=== PATIENT | female | born 1965 | race Caucasian/White ===

== ENCOUNTER 2019-05-27 07:55 | Outpatient (CLI) | payer MEDICAID, SELFPAY ==
--- NOTE | 2019-05-27 08:41 | US_ITS ---
WS: [id number] Pelvic ultrasound, 05/27/2019 Clinical Data: POST MENOPAUSAL BLEEDING Comparison: None. Findings: The uterus measures 3.82 cm x 8.77 cm x 9.03 cm. The endometrium is 0.58 cm. There is a small fibroid within the myometrium measuring 1.07 cm. The cer vix shows nabothian cysts. The ovaries were not imaged.There is minimal fluid in the cul-de-sac. US/US pelvic with transvaginal Impression: 1. Small fibroid in the uterus. 2. Ovaries not imaged. 3. Small amount of fluid in the cul-de-sac.
== END 2019-05-27 07:56 | disposition home or self-care (01) ==
PROVIDERS: Family Provider Nurse Practitioner Family; PCP Clinical Nurse Specialist Adult Health; Visit Provider Clinical Nurse Specialist Adult Health
DX: N95.0 Postmenopausal bleeding (principal); D25.9 Leiomyoma of uterus, unspecified
CPT/HCPCS: 76830; 76856

== ENCOUNTER → 2019-08-31 09:55 | Outpatient (BNVA) | payer MEDICAID, SELFPAY | PROVIDERS: Family Provider Nurse Practitioner Family; PCP Clinical Nurse Specialist Adult Health; Visit Provider Obstetrics & Gynecology Female Pelvic Medicine and Reconstructive Surgery | DX: Z12.39 Encounter for other screening for malignant neoplasm of breast (principal); N95.0 Postmenopausal bleeding; F41.9 Anxiety disorder, unspecified; J44.9 Chronic obstructive pulmonary disease, unspecified; E66.9 Obesity, unspecified; Z72.0 Tobacco use; N39.46 Mixed incontinence; N36.8 Other specified disorders of urethra | CPT/HCPCS: 88175 ==

== ENCOUNTER → 2019-09-02 07:29 | Outpatient (BNVA) | payer MEDICAID, SELFPAY | PROVIDERS: Family Provider Nurse Practitioner Family; PCP Clinical Nurse Specialist Adult Health; Visit Provider Obstetrics & Gynecology Female Pelvic Medicine and Reconstructive Surgery | DX: N95.0 Postmenopausal bleeding (principal) | CPT/HCPCS: 88305 ==

== ENCOUNTER 2020-02-19 08:56 | Emergency (ER) | payer MEDICAID, SELFPAY ==
[2020-02-19 09:02] VITALS: BP 166/91; PULSE 67; RESP 18; TEMP 36.4; O2SAT 98; BMI 37.9
--- NOTE | 2020-02-19 09:02 | XRR_ITS ---
PROCEDURE INFORMATION: Exam: XR Right Hand Exam date and time: 02/19/2020 9:03 AM Age: 54 years old Clinical indication: Pain; Hand; Right; Additional info: Pain, no trauma TECHNIQUE: Imaging protocol: XR Right hand. Views: 3 or more views. COMPARISON: No relevant prior studies available. FINDINGS: Bones/joints: Degenerative change. No marginal erosions. No acute bony injury or malalignment. Soft tissues: Soft tissue calcifications about the ulnar aspect of the 4th DIP joint and volar aspect of the carpus. XR/XR hand RT min 3V* [id number] IMPRESSION: 1. Degenerative change. 2. Soft tissue calcifications about the ulnar aspect of the 4th DIP joint and volar aspect of the carpus.
--- NOTE | 2020-02-19 09:03 | ED_ITS ---
HPI - Extremity Injury (Upper) General: Chief Complaint: Extremity Problem,Nontraumatic Stated Complaint: R HAND SWELLING/PAIN Time Seen by Provider: 02/19/20 09:00 Source: patient Mode of arrival: ambulatory Limitations: no limitations History of Present Illness: HPI narrative: 54-year-old female states she been having right hand pain over the last 2 days. States pain is a aching pain in the lateral portion of her hand. She denies any known injuries. She had no fever. States it is worse with movement or palpation. States improved with rest. Denies any wrist or elbow pain. Review of Systems Const: Denies: fever(s), chills, body aches or change in appetite Eyes: Denies: blurry vision or eye discomfort ENMT: Denies: throat pain or dental pain Card: Denies: chest pain Resp: Denies: dyspnea GI: Denies: abdominal pain, nausea, vomiting or diarrhea : Denies: dysuria Musc: Reports: extremity pain Skin/Breast: Denies: rash Neuro: Denies: headache(s) Psych: Denies: depression Lucien/Lymph: Denies: easy bruising All/Imm: Denies: urticaria PFSH ED PFSH: Medical History Anxiety COPD (chronic obstructive pulmonary disease) Low pressure urethral dysfunction Obesity (BMI 30-39.9) Surgical History delivery delivered x2 - 1986 and 1990 Tubal ligation status 1993 Family History Daughter Bleeding disorder Anemia Psychiatric illness Brother CAD (coronary artery disease) Mother Hyperlipidemia Hypertension Lung disease Stroke Son No problems noted. Sister Hypertension Denies family history of Diabetes Clotting disorder Dementia Chronic kidney disease (CKD) Suicide Anesthesia complication Family history of premature coronary artery disease Cancer Social History Smoking and tobacco status: current every day smoker cigarettes Packs smoked per day: 0.5 Alcohol intake: current Alcohol intake frequency: holidays/special occasions only Physical Exam Const: COMMON NORMALS: no acute distress, patient oriented x3 and healthy appearing HENMT: COMMON NORMALS: normocephalic and atraumatic HEAD & SCALP: normocephalic and atraumatic Eye: COMMON NORMALS: Equal, round and reactive pupils present and EOMs intact bilaterally PUPIL: Yes Equal, round and reactive pupils present Neck/C-Spine: COMMON NORMALS: full ROM and supple Chest: COMMONS NORMALS: normal inspection of the chest and normal palpation of entire chest wall Resp: COMMON NORMALS: normal respiratory effort, No retractions, No use of accessory muscles and clear to auscultation bilaterally AUSCULTATION: clear to auscultation bilaterally Cardio: COMMON NORMALS: regular rate, regular rhythm and No murmurs present (Cardio) RATE: regular rate RHYTHM: regular rhythm GI: COMMON NORMALS: Normal to inspection, nondistended, normoactive bowel sounds present, Soft to palpation, non-tender and no masses PALPATION: Yes Soft to palpation Extremity: COMMON NORMALS: normal to inspection and full ROM NARRATIVE EXTREMITY EXAM: And is sober ulnar aspect of the hand with no warmth to touch or swelling. Neuro: COMMON NORMALS: patient oriented x3, moves all extremities and no focal motor deficits Psych: COMMON NORMALS: mental status grossly normal, Normal thought process present and cooperative THOUGHT PROCESS: Normal thought process present Skin: COMMON NORMALS: no rashes or lesions noted and no wounds GENERAL SKIN EXAM: no rashes or lesions noted Course Vital Signs: Vital signs: Vital Signs Temperature 97.6 F 02/19/20 09:02 Pulse Rate 67 02/19/20 09:02 Respiratory Rate 18 02/19/20 09:02 Blood Pressure 166/91 02/19/20 09:02 Pulse Oximetry 98 02/19/20 09:02 MDM - Extremity Injury (Upper) MDM Narrative: Medical decision making narrative: Patient presents with hand pain that is likely a sprain. She has no signs of fracture or infection. Her exam here is benign. She is to ice it we will place her on anti-inflammatories. She is to follow-up with her PCP in 3 to 5 days and return if worsening. Imaging Data^: xr r hand: Attestation: I personally reviewed and interpreted this imaging study as follows: My impression: No acute abnormality Discharge Plan Discharge Patient Disposition: Home Clinical Impression: Hand pain, right Condition: Stable Prescriptions: New Naprosyn 500 mg tablet 500 mg PO BID PRN (Reason: pain) Qty: 20 RF: 0 No Action varenicline 0.5 mg (11)- 1 mg (42) tablets,dose pack See Rx Instructions PO PER PKG DIR Qty: 53 RF: 0 citalopram 40 mg tablet 40 mg PO DAILY RF: 0 albuterol sulfate [ProAir HFA] 90 mcg/actuation HFA aerosol inhaler 2 puff INHALATION Q6H PRNRF: 0 fluticasone propion-salmeterol [Advair Diskus] 250-50 mcg/dose blister with device 1 inh INHALATION BID RF: 0 solifenacin [Vesicare] 10 mg tablet 10 mg PO DAILY Qty: 30 RF: 3 Discharge Orders: Discharge Order (Routine); Ordered 02/19/20 Ordered By: Candie Luciano Referrals: Edith Krause APRN [Primary Care Provider] - Discharge Diet: Advance as tolerated Discharge Activity: Resume usual activity Patient Instructions: Arthralgia (ED) Coding Level of Care Code 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
[2020-02-19] MEDS: naproxen 500 mg Tablet PO (09:31)
[2020-02-19 09:35] VITALS: BP 154/81; PULSE 60; RESP 18; O2SAT 96
== END 2020-02-19 09:33 | disposition home or self-care (01) ==
PROVIDERS: Emergency Provider Emergency Medicine; PCP Clinical Nurse Specialist Adult Health
DX: M79.641 Pain in right hand (principal); J44.9 Chronic obstructive pulmonary disease, unspecified; F17.210 Nicotine dependence, cigarettes, uncomplicated
CPT/HCPCS: 12345; 73130; 99281; 99283

== ENCOUNTER 2021-03-20 09:51 | Outpatient (CLI) | payer MEDICARE, MEDICAID, SELFPAY | END 2021-03-20 09:52 | disposition home or self-care (01) | LOC: SLEEP 09:52 | PROVIDERS: PCP Clinical Nurse Specialist Adult Health; Visit Provider Nurse Practitioner | DX: G47.10 Hypersomnia, unspecified (principal); R06.83 Snoring; R53.83 Other fatigue; G47.33 Obstructive sleep apnea (adult) (pediatric) | CPT/HCPCS: 95810 ==

== ENCOUNTER 2021-04-30 20:00 | Outpatient (CLI) | payer MEDICARE, MEDICAID, SELFPAY | END 2021-04-30 20:01 | disposition home or self-care (01) | LOC: SLEEP 05-01 07:43 | PROVIDERS: PCP Clinical Nurse Specialist Adult Health; Visit Provider Nurse Practitioner | DX: G47.33 Obstructive sleep apnea (adult) (pediatric) (principal) | CPT/HCPCS: 95811 ==

== ENCOUNTER → 2021-05-28 11:04 | Outpatient (BNVA) | payer MEDICARE, MEDICAID, SELFPAY | PROVIDERS: PCP Clinical Nurse Specialist Adult Health; Visit Provider Nurse Practitioner Family | DX: Z20.822 Contact with and (suspected) exposure to COVID-19 (principal) | CPT/HCPCS: 87635 ==

== ENCOUNTER 2024-09-13 20:07 | Emergency (ER) | payer MEDICARE, MEDICAID, SELFPAY ==
[2024-09-13 20:22] VITALS: BP 136/69; PULSE 77; RESP 18; TEMP 36.4; O2SAT 97; BMI 43.5
--- NOTE | 2024-09-13 20:34 | XRR_ITS ---
PROCEDURE INFORMATION: Exam: XR Left Wrist Exam date and time: 09/13/2024 8:39 PM Age: 59 years old Clinical indication: Pain; Wrist; Left; Additional info: Pain, fall in sept of last year TECHNIQUE: Imaging protocol: Radiologic exam of the left wrist. Views: 3 or more views. COMPARISON: No relevant prior studies available. FINDINGS: Bones/joints: There is normal bony alignment. No acute fracture is detected. There is mild narrowing of the 1st carpometacarpal joint and triscaphe joint with subchondral sclerosis and small marginal spurs. Soft tissues: There is soft tissue edema surrounding the wrist. XR/XR wrist LT min 3V* [id number] IMPRESSION: 1. 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 2. Soft tissue edema. 3. No acute fracture detected.
[2024-09-13 21:00] VITALS: PULSE 74; RESP 20; O2SAT 96
--- NOTE | 2024-09-13 21:04 | PC.NURSE ---
shahnaz wrap applied to left wrist and ice with towel given for pain and comfort.
[2024-09-13] MEDS: HYDROcodone-acetaminophen 5-325 mg Tablet 1 TAB PO (21:40)
[2024-09-13] MEDS: dexamethasone 10 mg/mL INJ IM (21:40)
--- NOTE | 2024-09-13 22:32 | ED_ITS ---
HPI - Extremity Problem General: Chief complaint: Extremity Injury, Upper Stated complaint: Left Wrist Swollen Time Seen by Provider: 09/13/24 20:33 Source: patient Mode of arrival: ambulatory Limitations: no limitations History of Present Illness: Patient is a 59-year-old female who presents the emergency department complaining of left wrist pain over the past couple of days. Notes that January of last year she fell and injured it, and has had intermittent pain since. Has not taken any medications for the pain, and denies any recent trauma or injury. States that the pain radiates into her hand, she arrives with a wrapped in compression. Vitals have been unremarkable. No other symptoms at this time. MD Complaint: joint pain Onset (ago): day(s) Pain Consistency: constant Location: left and upper extremity (wrist) Radiation: distal Exacerbating factors: range of motion Associated symptoms: Deny chest pain, fever(s) or rash Related Data Home Medications ?Medication ?Instructions ?Recorded ?Confirmed albuterol sulfate 90 mcg/actuation 2 puff inhalation Q 6H PRN 08/31/19 05/28/21 aerosol inhaler (ProAir HFA) citalopram 40 mg tablet 40 mg PO DAILY 08/31/1905/18 fluticasone 250 mcg-salmeterol 50 1 inh inhalation BID 08/31/19 05/28/21 mcg/dose blistr powdr for inhalation (Advair Diskus) Previous Rx's ?Medication ?Instructions ?Recorded solifenacin 10 mg tablet (Vesicare) 10 mg PO DAILY #30 tabs 08/31/19 varenicline tartrate 0.5 mg (11)-1 See Rx Instructions PO PER PKG DIR 09/27/19 mg (42) tablets in a dose pack #53 ea naproxen 500 mg tablet (Naprosyn) 500 mg PO BID PRN pa in #20 tabs 02/19/20 prednisone 20 mg tablet 60 mg (3 x 20 mg) PO ONCE 5 days 09/13/24 #15 tabs Allergies Allergy/AdvReac Type Severity Reaction Status Date / Time No Known Allergies Allergy Verified 05/28/21 10:37 Review of Systems General: Reports: 10 or more systems reviewed and unremarkable except in HPI and below Const: Denies: fever(s) or chills Card: Denies: chest pain Resp: Denies: dyspnea or productive cough GI: Denies: abdominal pain, nausea, vomiting or diarrhea : Denies: flank pain Musc: Reports: joint pain (left wrist); Denies: neck pain, back pain, extremity pain, extremity swelling, joint swelling, joint redness, joint warmth, limited range of motion or muscle weakness Skin/Breast: Denies: rash Neuro: Denies: headache(s), numbness in extremities or weakness in extremities PFSH ED PFSH: Medical History Low pressure urethral dysfunction Obesity (BMI 30-39.9) Anxiety COPD (chronic obstructive pulmonary disease) Surgical History Tubal ligation status 1993 delivery delivered x2 - 1986 and 1990 Family History Daughter Bleeding disorder Anemia Psychiatric illness Brother CAD (coronary artery disease) Mother Hyperlipidemia Hypertension Lung disease Stroke Son No problems noted. Sister Hypertension Denies family history of Diabetes Clotting disorder Dementia Chronic kidney disease (CKD) Suicide Anesthesia complication Family history of premature coronary artery disease Cancer Social History Smoking and tobacco/nicotine status: current every day tobacco/nicotine user cigarettes Packs smoked per day: 0.5 Alcohol intake: current Alcohol intake frequency: holidays/special occasions only Substance/Drug Use: never Physical Exam Const: COMMON NORMALS: no acute distress, patient oriented x3, no limitations, healthy appearing, alert and well nourished HENMT: COMMON NORMALS: normocephalic and atraumatic HEAD & SCALP: normocephalic and atraumatic Neck/C-Spine: COMMON NORMALS: full ROM, supple and no meningeal signs Resp: COMMON NORMALS: normal respiratory effort, No use of accessory muscles and clear to auscultation bilaterally AUSCULTATION: clear to auscultation bilaterally Cardio: COMMON NORMALS: regular rate and regular rhythm RATE: regular rate RHYTHM: regular rhythm Extremity: COMMON NORMALS: normal to inspection, full ROM, capillary refill normal, no joint enlargement and no clubbing, cyanosis or edema NARRATIVE EXTREMITY EXAM: Phalen's test is positive, positive Tinel's sign Neuro: COMMON NORMALS: patient oriented x3, moves all extremities, no focal motor deficits and no sensory deficits noted SENSORIUM/ORIENTATION: Yes alert MENINGEAL SIGNS: Yes no meningeal signs Skin: COMMON NORMALS: no rashes or lesions noted GENERAL SKIN EXAM: no rashes or lesions noted Course Vital Signs: Vital signs: Vital Signs Temperature 97.6 F 09/13/24 20:22 Pulse Rate 74 09/13/24 21:00 Respiratory Rate 20 H 09/13/24 21:00 Blood Pressure 136/69 09/13/24 20:22 Pulse Oximetry 96 09/13/24 21:00 Oxygen Delivery Me thod Room Air 09/13/24 21:00 MDM - Extremity (Nontraumatic) Medical Decision Making I have concern for carpal tunnel syndrome due to positive testing on physical exam. There is also no reported trauma and no obvious deformity or signs of trauma on exam. Will refer to orthopedics, start her on steroids and have her to continue to treat conservatively at home. Lab Data Radiology Impressions Wrist X-Ray 09/13/24 20:34 IMPRESSION: 1. 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 2. Soft tissue edema. 3. No acute fracture detected. All radiology interpretation(s) finalized by discharge Discharge Plan Discharge Patient Disposition: Home Clinical Impression: Carpal tunnel syndrome Condition: Stable Prescriptions: New prednisone 20 mg tablet 60 mg PO ONCE 5 Days Qty: 15 0RF No Action varenicline tartrate 0.5 mg (11)- 1 mg (42) tablets,dose pack See Rx Instructions PO PER PKG DIR Qty: 53 0RF Rx Instructions: PO PER PKG DIR citalopram 40 mg tablet 40 mg PO DAILY albuterol sulfate [ProAir HFA] 90 mcg/actuation HFA aerosol inhaler 2 puff INHALATION Q6H PRN fluticasone propion-salmeterol [Advair Diskus] 250-50 mcg/dose blister with device 1 inh INHALATION BID solifenacin [Vesicare] 10 mg tablet 10 mg PO DAILY Qty: 30 3RF Naprosyn 500 mg tablet 500 mg PO BID PRN (Reason: pain) Qty: 20 0RF Discharge Orders: Discharge ED (Routine); Ordered 09/13/24 Ordered By: Chuck Lawrence Referrals: Edith Krause APRN [Primary Care Provider] - Patient Instructions: Carpal Tunnel Syndrome Activity Restrictions/Additional Instructions: Follow-up with orthopedics. Take prednisone as prescribed. Tylenol. Range of motion exercises. Please return with any new or worsening. 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
--- NOTE | 2024-09-14 08:32 | DCPLANNER ---
Message sent to Ortho clinic - I have concern for carpal tunnel syndrome due to positive testing on physical exam. There is also no reported trauma and no obvious deformity or signs of trauma on exam. Will refer to orthopedics, start her on steroids and have her to continue to treat conservatively at home.
== END 2024-09-13 21:45 | disposition home or self-care (01) ==
PROVIDERS: Emergency Provider Physician Assistant; PCP Clinical Nurse Specialist Adult Health
DX: G56.02 Carpal tunnel syndrome, left upper limb (principal); F17.210 Nicotine dependence, cigarettes, uncomplicated; J44.9 Chronic obstructive pulmonary disease, unspecified
CPT/HCPCS: 73110; 96372; 99284; J1100; J9999